=== PATIENT | male | born 1985 | race Caucasian/White ===

== ENCOUNTER 2022-05-08 07:09 | Emergency (ER) | payer OTHER ==
[2022-05-08 07:44] LABS: WHITE BLOOD COUNT 7.6 K/UL (4.5-11.0)
[2022-05-08 08:06] LABS: BUN/CREATININE RATIO 12 (0-10)
== END 2022-05-08 11:30 | disposition home or self-care (01) ==
LOC: ER1 07:09
DX: R07.89 Other chest pain (principal); E11.65 Type 2 diabetes mellitus with hyperglycemia; I10 Essential (primary) hypertension
CPT/HCPCS: 71045; 80053; 82550; 82553; 83690; 84484; 85025; 99285

== ENCOUNTER → 2022-06-16 | Day surgery (SDC) | payer OTHER ==
[~2022-06-16] MED LIST: ACTOS TAB 15MG15 MG PO; AMARYL4 MG PO; EPINEPHRIN0.3 MG/0.3 INJ; JARDIANCE10 MG PO; LIPITOR80 MG PO; METFORMIN ER1000 MG PO; VITAMIN D-40010 MCG PO; ZESTRIL20 MG PO
== END | disposition home or self-care (01) ==
LOC: OR 07:58
DX: K31.9 Disease of stomach and duodenum, unspecified (principal); E11.9 Type 2 diabetes mellitus without complications; I10 Essential (primary) hypertension; E78.00 Pure hypercholesterolemia, unspecified; E66.9 Obesity, unspecified; Z68.31 Body mass index [BMI] 31.0-31.9, adult
CPT/HCPCS: 82962; J2704; J7040